=== PATIENT | male | born 1945 | race Caucasian/White ===

== ENCOUNTER → 2017-04-27 | Day surgery (SDC) | payer OTHER ==
[~2017-04-27] VITALS: Ht 172.7 cm; Wt 97.0 kg
[~2017-04-27] MED LIST: ASPI325T PO; ATEN1TAB73 PO; ATEN25TA PO; CHOLESTEROL MED; GLUCAGON 1 MG/ML VIAL IV PUSH ONE; SIMV40TA PO; SODIUM CHLOR 0.9% 1000 ML INJ 1,000 ML IV SCH
[2017-04-27 18:25] VITALS: BP 184/92; PULSE 83; RESP 16; TEMP 98.7; O2SAT 98
--- NOTE | 2017-04-27 18:47 | PD ---
HPI Chief Complaint: Foreign Body Time Seen by Provider: 18:33 Travel History International Travel<30 days: No Contact w/Intl Traveler<30days: No Traveled to known affect area: No History of Present Illness HPI 71-year-old male complains of food bolus stuck in his throat. Patient states that he was eating steak about 15 minutes prior to arrival. Patient states that the food gets stuck in the back of the throat in the mid back neck area. Patient states that he has been unable to swallow any saliva or any fluid since then. Patient denies any chest pain or shortness of breath. Patient denies abdominal pain. Patient denies any nausea vomiting diarrhea. Patient has history of dysphagia for a long time. Patient has history of hypertension and hyperlipidemia. PFSH Past Medical History High Cholesterol: Yes Hypertension: Yes Tetanus Vaccination: < 5 Years Influenza Vaccination: Yes Social History Alcohol Use: Yes (OCC) Tobacco Use: No Substance Use: No Allergies-Medications (Allergen,Severity, Reaction): Coded Allergies: No Known Allergies (Verified Adverse Reaction, Unknown, 04/27/17) Reported Meds & Prescriptions Reported Meds & Active Scripts Active Reported Simvastatin 40 Mg Tab 40 Mg PO HS Atenolol 25 Mg Tab 25 Mg PO DAILY Review of Systems General / Constitutional: No: Fever Eyes: No: Visual changes HENT: No: Headaches Cardiovascular: No: Chest Pain or Discomfort Respiratory: No: Shortness of Breath Gastrointestinal: Positive: Other, No: Abdominal Pain Genitourinary: No: Dysuria Musculoskeletal: No: Pain Skin: No Rash Neurologic: No: Weakness Psychiatric: No: Depression Endocrine: No: Polydipsia Hematologic/Lymphatic: No: Easy Bruising Physical Exam Narrative GENERAL: Well-nourished, well-developed patient. SKIN: Focused skin assessment warm/dry. HEAD: Normocephalic. EYES: No scleral icterus. No injection or drainage. Throat: No obvious foreign body visible. NECK: Supple, trachea midline. No JVD or lymphadenopathy. CARDIOVASCULAR: Regular rate and rhythm without murmurs, gallops, or rubs. RESPIRATORY: Breath sounds equal bilaterally. No accessory muscle use. GASTROINTESTINAL: Abdomen soft, non-tender, nondistended. MUSCULOSKELETAL: No cyanosis, or edema. BACK: Nontender without obvious deformity. No CVA tenderness. Neurologic exam normal. Data Data Last Documented VS Vital Signs Date Time Temp Pulse Resp B/P (MAP) Pulse Ox O2 Delivery O2 Flow Rate FiO2 04/27/17 19:33 74 20 149/92 (111) 96 Room Air 04/27/17 18:25 98.7 Orders Orders Electrocardiogram (04/27/17 18:38) Complete Blood Count With Diff (04/27/17 18:38) Basic Metabolic Panel (Bmp) (04/27/17 18:38) Prothrombin Time / Inr (Pt) (04/27/17 18:38) Act Partial Throm Time (Ptt) (04/27/17 18:38) Chest, Single Ap (04/27/17 18:38) Iv Access Insert/Monitor (04/27/17 18:38) Ecg Monitoring (04/27/17 18:38) Oximetry (04/27/17 18:38) Sodium Chlor 0.9% 1000 Ml Inj (Ns 1000 M (04/27/17 18:45) Glucagon Inj (Glucagon Inj) (04/27/17 19:00) Admit Order (Ed Use Only) (04/27/17 19:48) Labs Laboratory Tests Test 04/27/17 19:10 White Blood Count 5.3 TH/MM3 Red Blood Count 4.92 MIL/MM3 Hemoglobin 14.2 GM/DL Hematocrit 43.5 % Mean Corpuscular Volume 88.3 FL Mean Corpuscular Hemoglobin 28.9 PG Mean Corpuscular Hemoglobin Concent 32.7 % Red Cell Distribution Width 13.6 % Platelet Count 165 TH/MM3 Mean Platelet Volume 8.8 FL Neutrophils (%) (Auto) 64.7 % Lymphocytes (%) (Auto) 24.0 % Monocytes (%) (Auto) 9.1 % Eosinophils (%) (Auto) 1.8 % Basophils (%) (Auto) 0.4 % Neutrophils # (Auto) 3.4 TH/MM3 Lymphocytes # (Auto) 1.3 TH/MM3 Monocytes # (Auto) 0.5 TH/MM3 Eosinophils # (Auto) 0.1 TH/MM3 Basophils # (Auto) 0.0 TH/MM3 CBC Comment DIFF FINAL Differential Comment Prothrombin Time 10.0 SEC Prothromb Time International Ratio 1.0 RATIO Activated Partial Thromboplast Time 23.7 SEC Blood Urea Nitrogen 15 MG/DL Creatinine 1.40 MG/DL Random Glucose 191 MG/DL Calcium Level 9.0 MG/DL Sodium Level 139 MEQ/L Potassium Level 3.8 MEQ/L Chloride Level 104 MEQ/L Carbon Dioxide Level 28.8 MEQ/L Anion Gap 6 MEQ/L Estimat Glomerular Filtration Rate 50 ML/MIN [facility] Medical Decision Making Medical Screen Exam Complete: Yes Emergency Medical Condition: Yes Interpretation(s) 1954 PM. EKG shows sinus rhythm nonspecific ST-T wave change. Last Impressions Chest X-Ray 04/27/17 1838 Signed Impressions: Service Date/Time: Thursday, April 27, 2017 18:44 - CONCLUSION: 1. No acute cardiopulmonary findings are identified. Ld Faust MD 1954 PM. CBC within normal limits. BMP with creatinine 1.4. GFR 50. Differential Diagnosis Differential diagnosis including food bolus obstruction of the esophagus. Narrative Course 71-year-old male complains of food bolus stuck on upper esophagus. Patient is unable to swallow any fluid or food since then. Patient spitting up saliva. No respiratory distress. Normal saline solution 1 25 cc an hour. 1904 p.m. I spoke with gastroenterology on-call, Dr. Fraire. Advised glucagon. Glucagon 2 g IV given. 1950 PM. Patient is still symptomatic. Patient will be transferred to the main hospital to same day surgery for upper GI endoscopy. Diagnosis Primary Impression: Esophageal obstruction due to food impaction Admitting Information Admitting Physician Requests: Observation Hernandez Estrella MD Apr 27, 2017 18:47
--- NOTE | 2017-04-27 19:00 | RADRPT ---
EXAM DATE/TIME: 04/27/2017 18:44 [facility] COMPARISON: No previous studies available for comparison. INDICATIONS : Short of breath, has meat stuck in throat,cough MEDICAL HISTORY : None. SURGICAL HISTORY : None. ENCOUNTER: Initial ACUITY: 1 day PAIN SCORE: 0/10 LOCATION: Bilateral chest FINDINGS: A single view of the chest demonstrates the lungs to be symmetrically aerated without evidence of mas s, infiltrate or effusion. The cardiomediastinal contours are unremarkable. Osseous structures are intact. CONCLUSION: 1. No acute cardiopulmonary findings are identified. Ld Faust MD on April 27, 2017 at 18:52 Board Certified Radiologist. This report was verified electronically.
[2017-04-27 19:15] LABS: AUTOMATED NEUTROPHIL # 3.4 TH/MM3 (1.8-7.7); BASOPHIL % 0.4 % (0.0-2.0); EOSINOPHIL # 0.1 TH/MM3 (0-0.4); EOSINOPHIL % 1.8 % (0.0-4.0); HEMATOCRIT 43.5 % (39.0-51.0); HEMOGLOBIN 14.2 GM/DL (13.0-17.0); LYMPHOCYTE # 1.3 TH/MM3 (1.0-4.8); MEAN CELL VOLUME 88.3 FL (80.0-100.0); MEAN CORPUSCULAR HEMOGLOBIN 28.9 PG (27.0-34.0); MEAN CORPUSCULAR HGB CONC 32.7 % (32.0-36.0); MEAN PLATELET VOLUME 8.8 FL (7.0-11.0); MONO % 9.1 % (0.0-8.0); MONOCYTE # 0.5 TH/MM3 (0-0.9); NEUT % 64.7 % (16.0-70.0); PLATELET COUNT 165 TH/MM3 (150-450); RED BLOOD COUNT 4.92 MIL/MM3 (4.50-5.90); RED CELL DISTRIBUTION WIDTH 13.6 % (11.6-17.2); WHITE BLOOD COUNT 5.3 TH/MM3 (4.0-11.0)
[2017-04-27 19:26] LABS: BICARBONATE 28.8 MEQ/L (21.0-32.0)
[2017-04-27 19:29] LABS: CREATININE 1.4 MG/DL (0.60-1.30)
[2017-04-27 19:33] VITALS: BP 149/92; PULSE 74; RESP 20; O2SAT 96
[2017-04-27 21:25] VITALS: BP 163/87; PULSE 83; O2SAT 96
--- NOTE | 2017-04-27 22:16 | GIPROC ---
[facility] [address] [place] [address], [id number] EGD PROCEDURE REPORT EXAM DATE: 04/27/2017 PATIENT NAME: Kolton Godinez MR #: [id number] BIRTHDATE: 1945 ATTENDING: Price Fraire MD ORDER #: [id number] [employer] HELPER: Becca Santizo and Trang Aviles STATUS: outpatient INDICATIONS: The patient is a 71 yr old male here for an EGD due to foreign body removal PROCEDURE PERFORMED: EGD w/ fb removal MEDICATIONS: None and Per Anesthesia. TOPICAL ANESTHETIC: none CONSENT: The patient understands the risks and benefits of the procedure and understands that these risks include, but are not limited to: sedation, allergic reaction, infection, perforation and/or bleeding. Alternative means of evaluation and treatment include, among others: physical exam, x-rays, and/or surgical intervention. The patient elects to proceed with this endoscopic procedure. medical equipment was checked for proper function. Hand hygiene and appropriate measures for infection prevention was taken. After the risks, benefits and alternatives of the procedure were thoroughly explained, Informed consent was verified, confirmed and timeout was successfully executed by the treatment team. The patient was anesthetized with topical anesthesia and the Pentax EG-[id number] endoscope was introduced through the mouth and advanced to the second portion of the duodenum. Retroflexion was performed and was normal The gastroscope was then slowly withdrawn and removed. ESOPHAGUS: There was a large amount of residual food seen in the mid esophagus and distal esophagus. STOMACH: There was a large amount of residual food seen in the entire examined stomach. Due to the residual food, complete mucosal examination could not be performed. ADVERSE EVENTS: There were no complications. IMPRESSIONS: 1. There was a large amount of residual food seen in the mid esophagus and distal esophagus, removed by snare basket, ulcer seen at the site of the impacted material. 2. Food residue in the entire examined stomach , limiting the visulization. 3. Duodenum not intubated with large amount of food in the stomach. RECOMMENDATIONS: No treatment , will need repeat EGD with 3 months for better inspection of the anatomy PATIENT CONDITION: stable DISPOSITION: Observation REPEAT EXAM: Return 3 months for EGD Price Fraire MD eSigned: Price Fraire MD 04/27/2017 10:15 PM cc:
[2017-04-27 22:56] VITALS: BP 142/92; PULSE 79; RESP 16; TEMP 98.1; O2SAT 98
--- NOTE | 2017-04-27 23:37 | MB ---
cc: Price Fraire MD DATE OF CONSULT: 04/27/2017 TYPE OF CONSULTATION: GI consult. REASON FOR CONSULTATION: Food impaction. HISTORY OF PRESENT ILLNESS: This is a 71-year-old male patient with a history of dysphagia over the last several months that is progressively increasing in severity, who presented to the emergency room after eating steak and he felt that the piece of steak got stuck in his throat. The patient was unable to keep his saliva and kept spitting, but did not have any shortness of breath or any other associated symptoms including chest pain, chest tightness. No nausea, no vomiting, no other associated symptoms. The patient was seen in the emergency room and was given glucagon without any improvement and the patient continued to have the same symptoms. GI consulted for possible food foreign body removal as an emergency case. REVIEW OF SYSTEMS: All 14 points of review of systems were negative other than the ones mentioned in the history of present illness. PAST MEDICAL HISTORY: Dyslipidemia and hypertension. PAST SURGICAL HISTORY: None. MEDICATIONS: Atenolol and simvastatin. ALLERGIES: NO KNOWN DRUG ALLERGIES. FAMILY HISTORY: Noncontributory. PSYCHOSOCIAL HISTORY: He drinks socially. No smoking or IV drug abuse. PHYSICAL EXAMINATION: GENERAL: The patient was found to be comfortable, not in distress or in pain and good build and hydration status. VITAL SIGNS: Hemodynamically stable and stable vital signs. HEENT: Normocephalic, atraumatic. Pupils equal, round, reactive to light. NECK: Supple, no lymphadenopathy. No thyromegaly. CHEST: Clear to auscultation bilateral. No crackles or wheezes. HEART: Regular rate and rhythm. No murmurs. ABDOMEN: Soft, nontender. No hepatosplenomegaly, no palpable masses. EXTREMITIES: Normal pulses. No edema. NEUROLOGIC: Cranial nerves 2-12 grossly intact. No focal motor or sensory deficits. SKIN: No rashes. ASSESSMENT AND PLAN: 1. A 71-year-old male patient who presented with a food impaction at the level of the throat with continuous spitting but without any respiratory distress. 2. History of progressive dysphagia over the period of time. 3. Failed glucagon IV injection to relieve his symptoms. RECOMMENDATIONS: Will proceed with upper endoscopy with foreign body removal. The procedure was explained to the patient including the risks, benefit and possible complication and the patient agreed to proceed with that. Will followup with you based on the findings. Further recommendation to follow. Thank you for the consultation. Price Fraire MD STACIA/rt , 10:30 PM , 11:36 PM
--- NOTE | 2017-04-28 13:13 | EKG ---
Date Performed: 04/27/2017 Time Performed: 19:03:10 PTAGE: 71 years EKG: Sinus rhythm NONSPECIFIC T-WAVE ABNORMALITY BORDERLINE ECG NO PREVIOUS TRACING DOCTOR: Law Aguilar Interpretating Date/Time 04/28/2017 13:11:34
== END | disposition home or self-care (01) ==
LOC: PHEFT 18:17 → PHSDC 19:57 → HSDC 19:57
PROVIDERS: ATTEND Specialist
DX: T18.0XXA Foreign body in mouth, initial encounter (principal); R13.10 Dysphagia, unspecified; I10 Essential (primary) hypertension; E78.5 Hyperlipidemia, unspecified; K22.2 Esophageal obstruction; R94.31 Abnormal electrocardiogram [ECG] [EKG]; Z79.899 Other long term (current) drug therapy
CPT/HCPCS: 00731; 43247; 71045; 80048; 85025; 85610; 85730; 93005; 96374; 99285; J1610; J7030